=== PATIENT | female | born 1955 | race Caucasian/White ===

== ENCOUNTER 2024-06-13 09:27 | Outpatient (CLI) | payer MEDICARE, SELFPAY ==
--- NOTE | 2024-06-13 09:57 | CT_ITS ---
FINAL REPORT TECHNIQUE: Axial CT of the abdomen and pelvis, without and with IV contrast. This study was performed with techniques to keep radiation doses as low as reasonably achievable, (ALARA). Individualized dose reduction techniques using automated exposure control or adjustment of mA and/or kV according to the patient's size were employed. CLINICAL HISTORY: Abdominal pain states lower abd pain COMPARISON: None FINDINGS: Abdomen: Lung bases are clear. A tiny hepatic cyst is present. The pancreas and adrenal glands are unremarkable. The spleen and gallbladder are surgically absent. Precontrast imaging shows no renal stone disease. There are 2 exophytic nodules in the upper pole of the left kidney, 1 corresponding to a simple cyst, the other a hyperdense cyst. There is a small cyst in the lower pole of the right kidney. No bowel obstruction or fluid collection is seen. Pelvis: The appendix is not visualized. Moderate sigmoid diverticulosis is present. No fluid collection or adenopathy is seen. IMPRESSION: No acute intra-abdominal or pelvic process. Moderate sigmoid diverticulosis without acute inflammatory change. Reviewed, Interpreted and Dictated by Raymond Peterson MD Transcribed by Judy Avalos Authenticated and [facility]
[2024-06-13 09:58] LABS: Albumin Level 3.8 g/dl (3.5-5.0); Chloride 110 mmol/L (98-107); Potassium 3.9 mmoL/L (3.5-5.1); Sodium 135 mmol/L (136-145)
[2024-06-13 10:01] LABS: Alanine Aminotransferase 17 U/L (12-78); Albumin/Globulin Ratio 1.1 (1.1-1.8); Alkaline Phosphatase 104 U/L (38-126); Anion Gap 3.9 mEq/L (5-15); Aspartate Amino Transferase 31 U/L (14-36); Bilirubin,Total 0.6 mg/dl (0.2-1.3); Blood Urea Nitrogen 26 mg/dl (7-17); Carbon Dioxide 25 mmol/L (22.0-30.0); Estimated Glomerular Filt Rate 62 ml/min (>60); GFR (African American) 75 ML/MIN (>60); Globulin 3.5 g/dL (1.3-3.2); Total Protein,Serum 7.3 g/dl (6.3-8.2)
[2024-06-13 10:02] LABS: Calcium 8.9 mg/dl (8.4-10.2); Glucose 99 mg/dl (74-100)
[2024-06-13] MEDS: IOPAMIDOL-370 (76%);100ML BOTTLE 75 ML IV (11:00)
[2024-06-13] MEDS: SODIUM CHLORIDE 0.9% 10ML SYR (RAD ONLY) 10 ML IV (11:00)
== END 2024-06-13 23:59 | disposition home or self-care (01) ==
PROVIDERS: PCP Internal Medicine; Visit Provider Internal Medicine Gastroenterology
DX: R10.30 Lower abdominal pain, unspecified (principal)
CPT/HCPCS: 36415; 74178; 80053; Q9967

== ENCOUNTER 2024-09-22 10:55 | Day surgery (SDC) | payer MEDICARE, SELFPAY ==
[2024-09-20 09:54] VITALS: BMI 28.3
[2024-09-22 11:18] VITALS: BP 125/75; PULSE 66; RESP 16; TEMP 36.7; O2SAT 99
[2024-09-22] MEDS: LACTATED RINGERS 1000ML 1,000 ML 50 ML IV (11:23)
--- NOTE | 2024-09-22 11:32 | P.PNANES_ITS ---
[facility] Disclaimer: The information contained in this section may have been updated after the patient was seen, as this information can be updated by other users. Medical History Lupus Surgical History Hx of hernia repair H/O section H/O splenectomy Family History Other Cancer Social History Smoking Status: Never smoker alcohol intake: never substance use type: denies use current occupational status: retired Travel in the last 8 weeks: None Have you lived/traveled outside US in past 30 days?: No Contact w/someone who lives/traveled outside US past 30 days?: No Exposure to someone with infectious disease in past 14 days?: No Do you have a fever (greater than 100.4 F or 38 C)?: No Have you tested positive for COVID-19: No Exposed to someone with COVID-19 in past 14 days?: No Do you have a sore throat?: No Do you have a cough?: No Do you have any weakness?: No Are you experiencing any nausea/vomitting?: No Do you have any diarrhea?: No Are you experiencing any unusual bleeding?: No Do you have any muscle aches/pain?: No Do you have any abdominal pain?: No Are you experiencing loss of taste or smell?: No [facility] Anesthesia Checklist Patient Identification Patient Identification: Arm Band Structural Data Admitted From: Home Planned Operative Procedure/s: EGD Consent for Planned Operative Procedure(s) Verified: Yes Verified Documents: Surgical Consent and History and Physical NPO Status Verified Time NPO: 00:00 Additional verifications Anesthesia Reactions: No Airway Assessment Mallampati Score:: Class II C-Spine Mobility Assessed: Yes TMJ Mobility Assessed: Yes Dentition: Good Dentition Neurological Assessment Level of Consciousness: Awake, Alert and Appropriate Anesthesia Plan Anesthesia Risk discussed: Yes Anesthesia Plan: Verified ASA Class: II Anesthesia Type: MAC
--- NOTE | 2024-09-22 12:19 | EXP.HP ---
History of Present Illness *Admission Date: 09/22/24 *Reason for visit:: Worsening dyspepsia/abdominal pain *History of present illness: Mrs. Baum is a 69-year-old female who is here for worsening dyspepsia with epigastric and lower abdominal pain and discomfort. She has had this for years and it may last a few days but more recently this has lasted for more than a couple of weeks. She does get bloating, gassiness and cramps and spasm in the lower abdomen. She has some nausea. Certain foods may exacerbate this. She does eat a lot of popcorn and salads. She did have a colonoscopy with me in February 2021 and had a single diminutive adenomatous polyp (small serrated adenoma) in the ascending colon removed. She also had extensive left-sided diverticulosis. The patient does state that she had a CAT scan a couple of years ago with Dr. Tovar. She does report regular bowel function but does have some smaller narrow stools with incomplete defecation and excessive wiping. [facility] Disclaimer: The information contained in this section may have been updated after the patient was seen, as this information can be updated by other users. Medical History (Updated 09/22/24 @ 12:20 by Cody Ring II, MD) Lupus Surgical History Hx of hernia repair H/O section H/O splenectomy Family History Other Cancer Social History Smoking Status: Never smoker alcohol intake: never substance use type: denies use current occupational status: retired Travel in the last 8 weeks: None Have you lived/traveled outside US in past 30 days?: No Contact w/someone who lives/traveled outside US past 30 days?: No Exposure to someone with infectious disease in past 14 days?: No Do you have a fever (greater than 100.4 F or 38 C)?: No Have you tested positive for COVID-19: No Exposed to someone with COVID-19 in past 14 days?: No Do you have a sore throat?: No Do you have a cough?: No Do you have any weakness?: No Are you experiencing any nausea/vomitting?: No Do you have any diarrhea?: No Are you experiencing any unusual bleeding?: No Do you have any muscle aches/pain?: No Do you have any abdominal pain?: No Are you experiencing loss of taste or smell?: No Other Medical History Have you received the Pneumonia Vaccine: Yes Review of Systems Review of Systems Review of systems (narrative): Negative *Cardiovascular Comments: Negative *Gastrointestinal Comments: Negative *Genitourinary Comments: Negative *Musculoskeletal Comments: Negative *Neurologic Comments: Negative Meds Home Medications and Allergies Home Medications ?Medication ?Instructions ?Recorded ?Confirmed ?Type aspirin 81 mg tablet,delayed 81 mg PO DAILY 05/24/24 09/20/24 History release (Adult Low Dose Aspirin) hydroxychloroquine 200 mg tablet 200 mg PO DAILY 05/24/24 09/20/24 History olmesartan 20 1 tab PO DAILY 05/24/24 09/20/24 History mg-hydrochlorothiazide 12.5 mg tablet New Prescriptions to Start Prescriptions: Allergies Allergy/AdvReac Type Severity Reaction Status Date / Time cephalexin (From Keflex) Allergy Rash Verified 09/22/24 11:07 Penicillins Allergy Rash Verified 09/22/24 11:07 Sulfa (Sulfonamide Allergy Rash Verified 09/22/24 11:07 Antibiotics) Exam Data for Last 24 hours Vital signs and Labs for Last 24 Hours: Temp Pulse Resp BP Pulse Ox O2 Del Method 98.0 F 66 16 125/75 99 Room Air 09/22/24 11:18 09/22/24 11:18 09/22/24 11:18 09/22/24 11:18 09/22/24 11:18 09/22/24 11:18 I & O for Last 24 hours: Intake & Output 09/19/24 09/20/24 09/21/24 09/22/24 23:59 23:59 23:59 23:59 Weight 155 lb *Routine HEENT Exam Head: Present normocephalic Eye: Present EOMI and PERRL ENT: Present mucous membranes moist *Routine Neck Exam Neck: Present supple *Routine Respiratory Exam Respiratory: Present CTA bilaterally *Routine Cardiovascular Exam Cardiovascular: Present RRR *Routine Abdominal Exam Abdominal: Present soft and normoactive bowel sounds; Absent tenderness *Routine Rectal Exam Rectal:: deferred *Routine Genitalia Exam Genitalia:: deferred *Routine Extremities Exam Extremities: Absent cyanosis, clubbing or edema *Routine Skin Exam Skin: Present warm; Absent rash *Routine Neurological Exam Neurological: Present alert and oriented X3 Assessment and Plan *Assessment and plan (1) Epigastric abdominal pain: Status: Acute Category: Medical Code(s): R10.13 - Epigastric pain (2) Dyspepsia: Status: Acute Category: Medical Code(s): R10.13 - Epigastric pain (3) Bloating: Status: Acute Category: Medical Code(s): R14.0 - Abdominal distension (gaseous) (4) Lower abdominal pain: Status: Acute Category: Medical Code(s): R10.30 - Lower abdominal pain, unspecified Plan A/P: 1. Worsening dyspepsia/epigastric and lower abdominal pain with bloating is the preprocedural diagnosis. The patient will be anesthetized/sedated using MAC sedation. The patient has been seen and examined. Cardiac and lung assessment prior to the examination is stable. Proceed with planned diagnostic EGD
--- NOTE | 2024-09-22 12:21 | P.PCN_ITS ---
[facility] Procedure Note Date: 09/22/24 Time: 12:43 Procedure Note:: Upper Endoscopy Procedure Report: Esophagogastroduodenoscopy with cold biopsies Endoscopost: Cody Ring II, MD Referring Physician: Ahkil Tovar MD Date of Procedure: September 22, 2024 Equipment: Olympus GIF 190 standard upper endoscope Sedation: MAC sedation Indications: Mrs. Baum is a 69-year-old female who is here for diagnostic upper endoscopy. She has had worsening dyspepsia with epigastric and lower abdominal pain and discomfort. She has had this for years and it may last a few days but more recently this has lasted for more than a couple of weeks. She does get bloating, gassiness and cramps and spasm in the lower abdomen. She has some nausea. Certain foods may exacerbate this. She does eat a lot of popcorn and salads. She did have a colonoscopy with me in February 2021 and had a single diminutive adenomatous polyp (small serrated adenoma) in the ascending colon removed. She also had extensive left-sided diverticulosis. The patient does state that she had a CAT scan a couple of years ago with Dr. Tovar. She does report regular bowel function but does have some smaller narrow stools with incomplete defecation and excessive wiping. I did recommend CT scan of the abdomen and pelvis after her last visit and this was normal except for moderate sigmoid diverticulosis without diverticulitis. There was some fecal retention. Procedure: Prior to the procedure, a history and physical exam was performed, and patient's medications and allergies were reviewed. The risks, benefits and alternatives of the sedation and procedure were discussed with the patient. All questions were answered and informed consent was obtained. The patient was brought to the procedure room. Patient identification and proposed procedure were verified by the physician and the nurse. The patient was placed in a left lateral decubitus position and the scope was passed under direct vision. Throughout the procedure, the patient's blood pressure, pulse, and oxygen saturations were monitored continuously. The upper GI endoscopy was accomplished without difficulty. The patient tolerated the procedure well. Findings: The scope was passed directly into the upper esophagus and advanced to the third portion of the duodenum. The post bulbar duodenum, ampulla and duodenal bulb were normal with normal mucosa and conniventes. The scope was withdrawn through a normal duodenal bulb and pylorus into the stomach. There was prepyloric erosive gastropathy with a single prepyloric gastric ulceration that was shallow and 8 to 9 mm. Biopsies were taken from the antrum. There was some reactive gastropathy of the body and fundus. Upon retroflexion, there was a very small sliding 1 to 2 cm hiatal hernia. The scope was then withdrawn into the esophagus. There was no evidence of reflux esophagitis or Sinclair's. The remainder of the esophageal mucosa was normal. Impression: 1. Nonerosive GERD with very small sliding 1 to 2 cm hiatal hernia 2. Prepyloric superficial gastric ulcer (8 to 9 mm) with prepyloric erosive reactive gastropathy Plan: I will follow-up the biopsies. The endoscopic findings are suggestive of NSAID gastropathy. I will inquire about NSAIDs. The patient is clinically improved. I did recommend dietary measures, psyllium Konsyl and Iberogast.
[2024-09-22 12:28] VITALS: O2SAT 100
[2024-09-22 12:48] VITALS: BP 110/58; PULSE 58; RESP 16; TEMP 36.4; O2SAT 97
[2024-09-22 12:58] VITALS: BP 111/57; PULSE 52; RESP 16; O2SAT 98
[2024-09-22 13:18] VITALS: BP 143/76; PULSE 55; RESP 16; O2SAT 99
== END 2024-09-22 13:23 | disposition home or self-care (01) ==
PROVIDERS: PCP Internal Medicine; Visit Provider Internal Medicine Gastroenterology
PROC: 0DJ08ZZ Inspection of Upper Intestinal Tract, Via Natural or Artificial Opening Endoscopic (ICD-10-PCS; CPT 43239; principal; 2024-09-22 12:30)
DX: K31.9 Disease of stomach and duodenum, unspecified (principal); K44.9 Diaphragmatic hernia without obstruction or gangrene; K21.9 Gastro-esophageal reflux disease without esophagitis; K25.9 Gastric ulcer, unspecified as acute or chronic, without hemorrhage or perforation; R10.13 Epigastric pain; R14.0 Abdominal distension (gaseous); R10.30 Lower abdominal pain, unspecified
CPT/HCPCS: 43239; 88305; J7120

== ENCOUNTER 2025-01-23 10:15 | Outpatient (CLI) | payer MEDICARE, SELFPAY ==
--- OUTSIDE RECORDS SUMMARY | 2025-01-23 10:19 | XMS_ITS | Clinical Summary ---
Author Organization [facility] Address [address] [place] [address] Care Team Providers Care Voltage Tester Name Role Phone Jostin Tovar MD Primary Care Provider [phone] Medications HYDROcodone-carlie taminophen (NORCO) 7.5-325 MG per tablet Take 1-2 tablets by mouth Every 4-6 Hours As Needed for pain 6 tablet 07/07/2019 4:14 PM EST 07/07/2019 Active Family History Medical History Relation Name Comments Breast cancer Neg Hx Ovarian cancer Neg Hx Social History Tobacco Use Types Packs/Day Years Used Date Smoking Tobacco: Never Assessed Comments No Sex and Gender Information Value Date Recorded Sex Assigned at Not on file Legal Sex Female 1:47 PM EDT Gender Identity Not on file Sexual Orientation Not on file Plan of Treatment Health Maintenance Due Date Last Done Comments DXA SCAN 1955 TDAP/TD VACCINES (1 - Tdap) 08/31/1974 COLOGUARD 08/31/2000 COLON CANCER SCREENING 5 YEA R SIGMOIDOSCOPY 08/31/2000 COLONOSCOPY 08/31/2000 COLORECTAL CANCER SCREENING 08/31/2000 CT COLONOGRAPHY 08/31/2000 FECAL OCCULT BLOOD TEST 08/31/2000 FIT Testing (1 year) 08/31/2000 ANNUAL PHYSICAL 07/04/2019 HEPATITIS C SCREENING 07/04/2019 COVID-19 Vaccine (5 2023-2 5 season) 2024 03/31/2022, 04/12/2021, 08/17/2020, Additional history exists INFLUENZA VACCINE 03/22/2025 MAMMOGRAM 04/25/2026 04/25/2024, 03/0 08/2022, 08/22/2022, Additional history exists ZOSTER VACCINE Completed 07/22/2019, 04/08/2019 Pneumococcal Vaccine 50+ Completed 03/29/2022 Procedures Procedure Name Priority Date/Time Associated Diagnosis Comments MAMMO SCREENING DIGITAL TOMOSYNTHESIS BILATERAL W CAD Routine 04/25/2024 9:17 AM EST Visit for screening mammogram from Last 3 Months or Most Recently Relevant to Health Maintenance Results * Mammo Screening Digital Tomosynthesis Bilateral With CAD (04/25/2024 9:17 AM EST) Anatomical Region Laterality Modality Breast N/A Mammography 04/26/2024 5:42 PM EST Impressions 04/26/2024 5:43 PM EST No findings suspicious for malignancy. ACR BI-RADS CATEGORY: 1, NEGATIVE RECOMMENDATION: Yearly mammogram, yearly clinical breast exam, and encourage self breast awareness. CAD was used. The standard false negative rate of mammography is between 10% and 25%. Complex patterns or increased breast density will markedly elevate the false negative rate of mammography. A letter, in lay terminology, with the results of this exam will be mailed to the patient. If there is a palpable area of concern, biopsy should be considered regardless of imaging findings. This report was finalized on 04/26/2024 5:43 PM by Adelaida Lopez MD. Narrative 04/26/2024 5:43 PM EST ROUTINE DIGITAL SCREENING MAMMOGRAM WITH TOMOSYNTHESIS HISTORY: Routine screening. IMAGE COMPARISON: Extending to 2019. TECHNIQUE: Low dose full field digital breast tomosynthesis imaging was performed with 2D and 3D acquisitions consisting of bilateral CC and MLO views. FINDINGS: There are scattered fibroglandular densities. The fibroglandular pattern appears stable. There is no mass, worrisome microcalcifications, or architectural distortion to suggest development of malignancy. Jostin Tovar MD IMG MAMMOGRAPHY ORDERABLES Fi nal Result from Last 3 Months or Most Recently Relevant to Health Maintenance Insurance MEDICARE A & B Member Subscriber Plan / Payer (Ef fective 2020-Present) Name:Sue Baum Member ID:[id number] Relation to Subscriber:Self Name:Sue Baum Subscriber ID:[id number] Payer ID:[id number] Group ID:Not on file Type:Not on file Address: [facility] [id number] [employer] Care Teams Voltage Tester Relationship Specialty Start Date End Date Jostin Tovar MD [address] [place] [address] PCP - General Internal Medicine 04/25/24
--- OUTSIDE RECORDS SUMMARY | 2025-01-23 10:19 | XMS_ITS | Clinical Summary ---
Author Organization Healthcare Address [facility] [place] [id number] Care Team Providers Care Resident Services Director Name Role Phone Jostin Tovar MD Primary Care Provider [phone] Allergies Active Allergy Reactions Criticality Noted Date Comments Cephalexin Other - please docum ent in the comment field,Unknown - Patient states they do not know rxn details Low 04/08/2013 Penicillins Rash,Unknown - Patie nt states they do not know rxn details Low 04/08/2013 Sulfacetamide Unknown - Patient st ates they do not know rxn details Low 09/15/2014 Medications hydroxychloroqu ine (Plaquenil) 200 MG tablet every other day. 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 Social History Tobacco Use Types Packs/Day Years Used Date Smoking Tobacco: Never Smokeless Tobacco: Never Tobacco Cessation:Counseling Given: Not Answered Comments Unknown Sex and Gender Information Value Date Recorded Sex Assigned at Not on file Legal Sex Female 7:58 PM EDT Gender Identity Not on file Sexual Orientation Not on file Last Filed Vital Signs Vital Sign Reading Time Taken Comments Blood Pressure 136/83 09/09/2022 10:58 AM EDT Pulse 76 09/09/2022 10:58 AM EDT Temperature - - Respiratory Rate - - Oxygen Saturation - - Inhaled Oxygen Concentration - - Weight 66.7 kg (147 lb) 09/09/2022 10:58 AM EDT Height 157.5 cm (5' 2 ) 09/09/2022 10:58 AM EDT Body Mass Index 26.89 09/09/2022 10:58 AM EDT Plan of Treatment Health Maintenance Due Date Last Done Comments [facility]-Bone Density Scan 1955 [facility]-Depression Screening 1955 [facility]-Hepatitis C Screening 1955 [facility]-Medicare Annual Wellness (AWV) 1955 [facility]-Infant/Child/Adol SDOH Screenings 1955 [facility]-Obesity Intervention 08/31/1961 [facility]- SDOH Screenings 08/31/1973 [facility]-Adult SDOH Screenings 08/31/1973 [facility]-DTaP,Tdap,and Td Vaccines (1 - Tdap) 08/31/1974 CT Colonography 08/31/2000 Colonoscopy 08/31/2000 FIT-DNA 08/31/2000 FIT 08/31/2000 FOBT 08/31/2000 Sigmoidoscopy 08/31/2000 [facility]-Colorectal Cancer Screening 08/31/2000 [id number]-[id number]-50 Vaccine ( season) 2024 03/31/2022, 04/12/2021, 08/17/2020, Additional history exists [facility]-Breast Cancer Screening 08/22/2024 03/0 08/2022, 08/22/2022, 06/29/2020, Additional history exists [facility]-Influenza Vaccine (#1) 2025 [facility]-RSV Vaccine: 60+ Years or (1 - 1-dose 75+ series) 08/31/2030 [facility]-Zoster Vaccines Completed 07/22/2019, 9 [facility]-Pneumococcal Vaccine: 50+ Years Completed 03/29/2022 HPV Vaccines Aged Out No longer eligi ble based on patient's age to complete this topic [facility]-HIB Vaccines Aged Out No longer e ligible based on patient's age to complete this topic [facility]-Hepatitis A Vaccines Aged Out No longer eligible based on patient's age to complete this topic [facility]Y-IPV Vaccines Aged Out No longer e ligible based on patient's age to complete this topic UKY-Rotavirus Vaccines Aged Out No lo nger eligible based on patient's age to complete this topic Insurance MEDICARE [facility] Care Teams Resident Services Director Relationship Specialty Start Date End Date Jostin Tovar MD [address] [place] [address] PCP - General 06/04/22
--- OUTSIDE RECORDS SUMMARY | 2025-01-23 10:19 | XMS_ITS | Encounter Summary ---
Author Organization [facility] Address [address] [place] [address] Care Team Providers Care Motion Picture Printer Name Role Phone Jostin Tovar MD Primary Care Provider [phone] Reason for Referral * Consultation (Routine) - Closed Specialty Diagnoses / Procedures Referred By Fabian t Referred To Contact Otolaryngology Diagnoses Chronic sialoadenitis John Landis MD [address] [facility], [address] [address] Phone: tel: fax: Referral ID Status Reason Start Date Expiration Date V isits Requested Visits Authorized [id number] Closed Specialty Services Required 05/30/2022 11/29/2023 1 1 Encounter Details Date Type Department Care Team (Late st Contact Info) Description 05/30/2022 [facility] [address] [place] [address] John Landis MD [address] [facility], [place] [address] Chronic sialoadenitis (Primary Dx) Social History Tobacco Use Types Packs/Day Years Used Date Smoking Tobacco: Never Assessed Comments Unknown Sex and Gender Information Value Date Recorded Sex Assigned at Not on file Legal Sex Female 7:58 PM EDT Gender Identity Not on file Sexual Orientation Not on file documented as of this encounter Plan of Treatment Scheduled Referrals Name Type Priority Associated Diagnoses Orde r Schedule Ambulatory Referral to ENT Outpatient Referral Routine Chronic sialoadenitis Expected: 05/30/2022 (Approximate), Expires: 11/29/2023 documented as of this encounter Visit Diagnoses Diagnosis Chronic sialoadenitis- Primary documented in this encounter Care Teams Motion Picture Printer Relationship Specialty Start Date End Date Jostin Tovar MD [address] [facility] [place] [address] PCP - General 06/04/22 documented as of this encounter
--- OUTSIDE RECORDS SUMMARY | 2025-01-23 10:20 | XMS_ITS | Patient Health Record ---
Author Organization [facility] Address [address] [place] [address] Care Team Providers Care Automation Controls Expert Name Role Phone Jostin Tovar Primary Care Provider Unavailabl e Allergies Allergen (clinical drug ingredient) Drug/Non Drug Allergy documented on EMR Reaction Allergy Type Onset Date Status cephalexin Cephalexin rash Drug Allergy Activ e Penicillin rash Drug Allergy Active Substance with sulfonamide structure and antibacterial mechanism of action (substance) Sulfa Antibiotics shortness of breath Drug Allergy Active Reason For Referral No Information Medications Medication SIG (Take, Route, Frequency, Duration) Notes Start Date End Date Status Benicar HCT 20-12.5 MG 1 tab(s) orally o nce a day Active Plaquenil 200 MG 1 tab(s) orally once a day Active Flonase Allergy Relief 50 MCG/ACT 1 spray(s) intranasally once a day; Duration: 30 day(s) 11/04/2015 Not-Taking Azithromycin 250 MG 2 tablets on the day, then 1 tablet daily for 4 days orally once a day; Duration: 5 day(s) 11/04/2015 Not-Taki ng Problems Problem Type SNOMED Code ICD Code Onset Dates Problem Status W/U Status Risk Notes Problem Overweight (362485764) Overweight (E66.3) Active confirmed Problem Body mass index 25-29 - overweight (195785301) Body mass index [BMI] 27.0-27.9, adult (Z68.27) Active confirmed Plan Of Treatment No Information Insurance Providers Payer Name Payer Address Payer Phone Subscriber Number Group Number Insured Name Patient Relationship to Insured Coverage Start Date Coverage End Date [place] [address] [place] [address] [id number] CLAUDE LAGUNAS Self - patient is the insured [facility] Medicare Supplement [facility] [address] [place] [address] [id number] JANNETH CLAUDE Self - patient is the insured Medical (General) History Medical History History ICD Code lupus HTN Surgical History Surgery Date(Month/Year) spleen removed 1975 hernia 2005 1985 Hospitalization History Reason Date(Month/Year) see above
== END 2025-01-23 23:59 | disposition home or self-care (01) ==
LOC: LAB 10:17
PROVIDERS: PCP Internal Medicine; Visit Provider Nurse Practitioner Family
DX: K25.3 Acute gastric ulcer without hemorrhage or perforation (principal); B96.81 Helicobacter pylori [H. pylori] as the cause of diseases classified elsewhere
CPT/HCPCS: 83013

== ENCOUNTER 2025-05-15 09:31 | Outpatient (CLI) | payer MEDICARE, SELFPAY ==
--- OUTSIDE RECORDS SUMMARY | 2025-05-15 09:36 | XMS_ITS | Clinical Summary ---
Author Organization Healthcare Address [facility] [place] [id number] Care Team Providers Care Artificial Pearl Maker Name Role Phone Jostin Tovar MD Primary Care Provider [phone] Allergies Active Allergy Reactions Criticality Noted Date [...] 08/31/2000 Sigmoidoscopy 08/31/2000 [facility]-Colorectal Cancer Screening 08/31/2000 [facility]-Breast Cancer Screening 08/22/2024 03/0 08/2022, 08/22/2022, 06/29/2020, Additional history exists PEG-[id number]-20 Vaccine (2024- season) 2025 03/31/2022, 04/12/2021, 08/17/2020, Additional history exists [facility]-Influenza Vaccine (#1) 2025 [...] age to complete this topic Insurance MEDICARE [facility] Care Teams Artificial Pearl Maker Relationship Specialty Start Date End Date Jostin Tovar MD [address] [place] [address] PCP - General 06/04/22
--- OUTSIDE RECORDS SUMMARY | 2025-05-15 09:36 | XMS_ITS | Clinical Summary ---
Author Organization [facility] Address [address] [place] [address] Care Team Providers Care Acoustical Carpenter Name Role Phone Jostin Tovar MD Primary Care Provider [phone] Medications HYDROcodone-carlie taminophen (NORCO) 7.5-325 MG per [...] Orientation Not on file Plan of Treatment Upcoming Encounters Date Type Department Care Team (Late st Contact Info) Description 06/05/2025 1:20 PM EST Appointment [facility] [address] [place] [id number] Health Maintenance Due Date Last Done Comments DXA SCAN 1955 TDAP/TD VACCINES (1 - Tdap) 08/31/1974 COLOGUARD 08/31/2000 COLON CANCER SCREENING 5 YEA R SIGMOIDOSCOPY 08/31/2000 COLONOSCOPY 08/31/2000 COLORECTAL CANCER SCREENING 08/31/2000 CT COLONOGRAPHY 08/31/2000 FECAL OCCULT BLOOD TEST 08/31/2000 FIT Testing (1 year) 08/31/2000 ANNUAL WELLNESS VISIT 07/04/2019 HEPATITIS C SCREENING 07/04/2019 INFLUENZA VACCINE 01/20/2025 COVID-19 Vaccine (2024-2 6 season) 2025 03/31/2022, 04/12/2021, 08/17/2020, Additional history exists MAMMOGRAM 04/25/2026 04/25/2024, 03/0 08/2022, 08/22/2022, Additional [...] Payer (Ef fective 2020-Present) Name:Sue Baum Member ID:[id number] Relation to Subscriber:Self Name:Sue Baum Yahir Subscriber ID:[id number] Payer ID:[id number] Group ID:Not on file Type:Not on file Address: [id number] [employer] Care Teams Acoustical Carpenter Relationship Specialty Start Date End Date Jostin Tovar MD [address] [place] [address] PCP - General Internal Medicine 04/25/24
--- OUTSIDE RECORDS SUMMARY | 2025-05-15 09:36 | XMS_ITS | Encounter Summary ---
Author Organization [facility] Address [address] [place] [address] Care Team Providers Care Systems Software Developer Name Role Phone Jostin Tovar MD Primary Care Provider [phone] Reason for Referral * Consultation (Routine) - Closed Specialty Diagnoses / Procedures Referred By Fabian t Referred To Contact Otolaryngology Diagnoses Chronic sialoadenitis John Landis MD [address] [facility], [address] [address] Phone: tel: fax: Referral ID Status Reason Start Date Expiration Date V isits Requested Visits Authorized [id number] Closed Specialty Services Required 05/30/2022 11/29/2023 1 1 Encounter Details Date Type Department Care Team (Late st Contact Info) Description 05/30/2022 [facility] [address] [place] [address] John Landis MD [address] [facility], [place] [address] Chronic sialoadenitis (Primary Dx) Social History Tobacco [...] Primary documented in this encounter Care Teams Systems Software Developer Relationship Specialty Start Date End Date Jostin Tovar MD [address] [facility] [place] [address] PCP - General 06/04/22 documented as of this encounter
--- OUTSIDE RECORDS SUMMARY | 2025-05-15 09:36 | XMS_ITS | Patient Health Record ---
Author Organization [facility] Address [address] [place] [address] Care Team Providers Care Fax Machine Repairer Name Role Phone Jostin Tovar Primary Care [...] Status W/U Status Risk Notes Problem Overweight (770137126) Overweight (E66.3) Active confirmed Problem Body mass index 25-29 - overweight (913594572) Body mass index [BMI] 27.0-27.9, adult (Z68.27) Active confirmed Plan Of Treatment No Information Insurance Providers Payer Name Payer Address Payer Phone Subscriber Number Group Number Insured Name Patient Relationship to Insured Coverage Start Date Coverage End Date [place] [address] [place] [place] [address] [id number] CLAUDE LAGUNAS Self - patient is the insured [facility] Medicare Supplement [facility] [address] [place] [address] [id number] JANNETH CLAUDE Self - patient is the insured Medical (General) History Medical History History ICD Code lupus HTN Surgical History Surgery Date(Month/Year) spleen removed 1975 hernia 2005 1985 Hospitalization History Reason Date(Month/Year) see above
== END 2025-05-15 23:59 | disposition home or self-care (01) ==
LOC: LAB 09:32
PROVIDERS: PCP Internal Medicine; Visit Provider Nurse Practitioner Family
DX: K25.3 Acute gastric ulcer without hemorrhage or perforation (principal); B96.81 Helicobacter pylori [H. pylori] as the cause of diseases classified elsewhere
CPT/HCPCS: 83013; 83014